=== PATIENT | male | born 1995 | race Caucasian/White ===

== ENCOUNTER 2017-10-01 15:11 | Emergency (ER) | payer OTHER ==
[~2017-10-01] VITALS: Ht 165.1 cm; Wt 72.7 kg
[2017-10-01 17:09] VITALS: BP 111/70
== END 2017-10-01 17:10 | disposition home or self-care (01) ==
LOC: EME 15:11
DX: S20.212A Contusion of left front wall of thorax, initial encounter (principal); W03.XXXA Other fall on same level due to collision with another person, initial encounter; Y93.61 Activity, american tackle football
CPT/HCPCS: 71046; 99281; 99284